=== PATIENT | female | born 1950 | race African-American/Black ===

== ENCOUNTER 2022-04-28 15:35 | Emergency (ER) | payer BC, MEDICAID, MEDICARE ==
[~2022-04-28] VITALS: Ht 167.6 cm; Wt 74.0 kg
[~2022-04-28 15:35] MED LIST: ONDA4TAB5 PO
[2022-04-28 16:15] VITALS: BP 132/77
[2022-04-28] MEDS ORDERED: ACETAMINOPHEN 325MG TABLET PO ONE (16:15)
[2022-04-28] MEDS ORDERED: IBUPROFEN 400MG TABLET PO ONE (16:15)
[2022-04-28] MEDS ORDERED: LIDOCAINE 5% PATCH TOP SCH (16:15)
== END 2022-04-28 18:03 | disposition left against medical advice (07) ==
LOC: ER 15:35
DX: M25.511 Pain in right shoulder (principal); M54.50 Low back pain, unspecified; W18.39XA Other fall on same level, initial encounter; Y93.89 Activity, other specified; Y92.89 Other specified places as the place of occurrence of the external cause; Y99.8 Other external cause status; I10 Essential (primary) hypertension; Z86.73 Personal history of transient ischemic attack (TIA), and cerebral infarction without residual deficits; Z90.710 Acquired absence of both cervix and uterus
CPT/HCPCS: 72131; 73030; 99284

== ENCOUNTER 2024-04-09 07:58 | Emergency (ER) | payer BC, MEDICAID ==
[~2024-04-09] VITALS: Ht 167.6 cm; Wt 86.0 kg
[2024-04-09 08:01] VITALS: TEMP 97.9; O2SAT 98
[2024-04-09] MEDS: LABETALOL 5MG/ML 4ML INJ IV ONE (08:15)
[2024-04-09] MEDS: METOCLOPRAMIDE HCL 10MG/2ML VIAL IV ONE (08:15)
[2024-04-09 08:50] LABS: CHLORIDE 108 mEq/L (98-107); SODIUM 142 mEq/L (136-145)
[2024-04-09 08:51] LABS: CARBON DIOXIDE 24 mEq/L (21-32)
[2024-04-09 08:52] LABS: BASOPHILS % 0.9 % (0.0-2.0); CALCIUM 9.6 mg/dL (8.7-10.4); EOSINOPHILS % 1.3 % (0.0-5.0); HEMATOCRIT. 46.6 % (36.0-48.0); HEMOGLOBIN. 15.1 g/dL (12.0-16.0); LYMPHOCYTES % 39.4 % (20.0-50.0); MEAN CORPUSCULAR HEMOGLOBIN 29.3 pg (28.0-32.0); MEAN CORPUSCULAR HGB CONC 32.3 g/dL (31.0-37.0); MEAN CORPUSCULAR VOLUME 90.8 fL (81.0-99.0); MEAN PLATELET VOLUME 9.9 fl (7.4-10.4); MONOCYTES % 7.7 % (2.0-8.0); NEUTROPHILS % 50.7 % (40.0-76.0); PLATELET 231 x1000/uL (130-400); RED BLOOD CELL COUNT 5.14 mill/uL (4.2-5.4); RED CELL DISTRIBUTION WIDTH 13.6 % (11.6-14.6); WHITE BLOOD COUNT 8.8 x1000/uL (4.5-11.0)
[2024-04-09 08:56] LABS: CREATININE 0.8 mg/dL (0.6-1.0); GLUCOSE 108 mg/dL (70-105)
[2024-04-09 08:57] LABS: UREA NITROGEN BLOOD 7 mg/dL (9-23)
[2024-04-09 08:58] LABS: ALANINE AMINOTRANSFERASE < 7 IU/L (10-49); ALBUMIN 4.6 g/dL (3.2-4.8); ASPARTATE AMINOTRANSFERASE 14 IU/L (<34); TROPONIN I HIGH SENSITIVITY 5 ng/L (3.0-34)
[2024-04-09 08:59] LABS: BILIRUBIN DIRECT 0.2 mg/dL (<=3.0); BILIRUBIN TOTAL 0.7 mg/dL (0.1-1.0); PROTEIN TOTAL 7.6 g/dL (6.0-8.3)
[2024-04-09] MEDS: NICARDIPINE 40MG/200ML PREMIX 200 ML IV PRN (09:00)
[2024-04-09 09:07] LABS: PROTHROMBIN TIME 11.6 sec (9.6-11.0)
[2024-04-09] MEDS: NIMODIPINE 30MG CAPSULE PO SCH (09:30)
[2024-04-09] MEDS: MORPHINE SULFATE 2 MG/ML INJ (NOT FOR IM USE) IV ONE (09:51)
[2024-04-09 10:00] VITALS: PULSE 87; RESP 10
[2024-04-09 10:48] VITALS: BP 126/45
== END 2024-04-09 11:15 | disposition short-term general hospital (02) ==
LOC: ER 08:09 → CANBEDREQ 11:21
DX: R51.9 Headache, unspecified (principal); I10 Essential (primary) hypertension; Z86.73 Personal history of transient ischemic attack (TIA), and cerebral infarction without residual deficits; Z90.710 Acquired absence of both cervix and uterus
CPT/HCPCS: 99291; 96365; 70450; 96375; 80076; 80048; 85025; 85610; 85730; 84484; 36415; 93005; J2765; J2270; J3490